=== PATIENT | male | born 1990 | race Two or more races ===

== ENCOUNTER 2022-03-30 12:41 | Outpatient (REF) | payer MEDICAID, OTHER, SELFPAY ==
--- NOTE | 2022-03-30 09:45 | EMG_ITS ---
Please see scanned EMG / Nerve Conduction Report. MTDD
== END 2022-03-30 12:42 | disposition home or self-care (01) ==
LOC: HO.NEURO 12:41
PROVIDERS: Visit Provider Emergency Medicine
DX: M79.642 Pain in left hand (principal); M79.641 Pain in right hand
CPT/HCPCS: 95885; 95913